=== PATIENT | male | born 1980 | race Caucasian/White ===

== ENCOUNTER 2018-03-30 13:33 | Emergency (ER) | payer MEDICAID ==
[~2018-03-30] VITALS: Ht 660.3 cm; Wt 83.3 kg
[~2018-03-30 13:33] MED LIST: BACDS PO; CLIN150C2 PO; NO HOME MEDS
[2018-03-30] MEDS ORDERED: azithromycin 250mg tablet PO ONE (14:30)
[2018-03-30] MEDS ORDERED: CefTRIAXone 250MG IM Kit w/LIDOcaine IM ONE (14:30)
[2018-03-30 14:58] VITALS: BP 129/72
== END 2018-03-30 15:00 | disposition home or self-care (01) ==
LOC: ER 13:33
DX: A64 Unspecified sexually transmitted disease (principal); F12.90 Cannabis use, unspecified, uncomplicated; F15.90 Other stimulant use, unspecified, uncomplicated; Z56.0 Unemployment, unspecified; Z79.2 Long term (current) use of antibiotics
CPT/HCPCS: 36415; 87491; 87591; 96372; 99284; J0696

== ENCOUNTER 2018-07-25 10:05 | Emergency (ER) | payer MEDICAID ==
[~2018-07-25] VITALS: Ht 188 cm; Wt 75.0 kg
[2018-07-25 10:10] VITALS: BP 129/82
[2018-07-25] MEDS ORDERED: CefTRIAXone 250MG IM Kit w/LIDOcaine IM ONE (11:10)
[2018-07-25] MEDS ORDERED: azithromycin 250mg tablet PO ONE (11:10)
== END 2018-07-25 11:33 | disposition home or self-care (01) ==
LOC: ER 10:06
DX: A63.8 Other specified predominantly sexually transmitted diseases (principal); B95.7 Other staphylococcus as the cause of diseases classified elsewhere; F19.10 Other psychoactive substance abuse, uncomplicated; M79.89 Other specified soft tissue disorders; F12.90 Cannabis use, unspecified, uncomplicated; F15.90 Other stimulant use, unspecified, uncomplicated; Z56.0 Unemployment, unspecified
CPT/HCPCS: 96372; 99283; J0696

== ENCOUNTER 2020-04-06 11:47 | Emergency (ER) | payer MEDICAID ==
[~2020-04-06] VITALS: Ht 188 cm; Wt 84.1 kg
[2020-04-06 11:54] VITALS: BP 124/80
[2020-04-06] MEDS ORDERED: proparacaine 0.5% ophthalmic drops 15ml LEFTEYE ONE (13:05)
[2020-04-06] MEDS ORDERED: ciprofloxacin 0.3% 2.5ml ophthalmic solution LEFTEYE ONE (13:40)
[2020-04-06] MEDS ORDERED: CIPR2.5D18 RIGHTEYE (14:07)
== END 2020-04-06 14:27 | disposition home or self-care (01) ==
LOC: ER 11:47
DX: H10.9 Unspecified conjunctivitis (principal); F12.90 Cannabis use, unspecified, uncomplicated; F15.90 Other stimulant use, unspecified, uncomplicated; Z56.0 Unemployment, unspecified; Z79.2 Long term (current) use of antibiotics
CPT/HCPCS: 99283

== ENCOUNTER 2020-07-05 05:02 | Emergency (ER) | payer MEDICAID ==
[~2020-07-05] VITALS: Ht 188 cm; Wt 81.8 kg
[2020-07-05] MEDS ORDERED: azithromycin 250mg tablet PO ONE (05:15)
[2020-07-05] MEDS ORDERED: CefTRIAXone 250MG IM Kit w/LIDOcaine IM ONE (05:15)
[2020-07-05 05:44] VITALS: BP 133/94
== END 2020-07-05 05:45 | disposition home or self-care (01) ==
LOC: ER 05:03
DX: Z20.2 Contact with and (suspected) exposure to infections with a predominantly sexual mode of transmission (principal); R10.11 Right upper quadrant pain; F12.90 Cannabis use, unspecified, uncomplicated; F15.90 Other stimulant use, unspecified, uncomplicated; Z56.0 Unemployment, unspecified; Z79.2 Long term (current) use of antibiotics; Z98.890 Other specified postprocedural states
CPT/HCPCS: 96372; 99283; J0696

== ENCOUNTER 2020-10-27 08:19 | Emergency (ER) | payer MEDICAID ==
[~2020-10-27] VITALS: Ht 188 cm; Wt 81.8 kg
[2020-10-27 08:24] VITALS: BP 136/89
[2020-10-27] MEDS ORDERED: CefTRIAXone 250MG IM Kit w/LIDOcaine IM ONE (09:25)
== END 2020-10-27 10:09 | disposition home or self-care (01) ==
LOC: ER 08:20
DX: R36.9 Urethral discharge, unspecified (principal); F12.90 Cannabis use, unspecified, uncomplicated; F15.90 Other stimulant use, unspecified, uncomplicated; Z56.0 Unemployment, unspecified; Z79.2 Long term (current) use of antibiotics; Z79.899 Other long term (current) drug therapy
CPT/HCPCS: 36415; 87491; 87591; 96372; 99283; J0696

== ENCOUNTER 2020-11-17 03:36 | Emergency (ER) | payer MEDICAID ==
[~2020-11-17] VITALS: Ht 188 cm; Wt 81.8 kg
[2020-11-17 03:39] VITALS: BP 126/97
[2020-11-17] MEDS ORDERED: CefTRIAXone 1000mg IM Kit (w/lidocaine diluent) IM STA (03:47)
[2020-11-17] MEDS ORDERED: DOXY100C43 PO (03:49)
[2020-11-17] MEDS ORDERED: DOXYCYCLINE 100MG CAPSULE PO ONE (03:50)
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
== END 2020-11-17 04:52 | disposition home or self-care (01) ==
LOC: ER 03:36
DX: A56.01 Chlamydial cystitis and urethritis (principal); Z11.3 Encounter for screening for infections with a predominantly sexual mode of transmission; F12.90 Cannabis use, unspecified, uncomplicated; F15.90 Other stimulant use, unspecified, uncomplicated; Z79.2 Long term (current) use of antibiotics; Z79.899 Other long term (current) drug therapy; Z56.0 Unemployment, unspecified
CPT/HCPCS: 96372; 99283; J0696

== ENCOUNTER 2021-06-17 06:30 | Emergency (ER) | payer MEDICAID ==
[~2021-06-17] VITALS: Ht 188 cm; Wt 81.8 kg
[2021-06-17] MEDS ORDERED: CefTRIAXone 250MG inj IM ONE (07:20)
[2021-06-17] MEDS ORDERED: DOXY-1 PO (07:23)
[2021-06-17 07:46] VITALS: BP 126/82
[2021-06-17] MEDS ORDERED: CefTRIAXone 500MG IM Kit w/LIDOcaine IM ONE (08:45)
== END 2021-06-17 07:53 | disposition home or self-care (01) ==
LOC: ER 06:31
DX: N34.2 Other urethritis (principal); A54.9 Gonococcal infection, unspecified; F12.90 Cannabis use, unspecified, uncomplicated; F15.90 Other stimulant use, unspecified, uncomplicated; Z56.0 Unemployment, unspecified; Z88.1 Allergy status to other antibiotic agents
CPT/HCPCS: 96372; 99283; J0696

== ENCOUNTER 2022-11-29 22:32 | Emergency (ER) | payer MEDICAID ==
[~2022-11-29] VITALS: Ht 188 cm; Wt 90.0 kg
[2022-11-30 00:19] LABS: CLARITY,URINE SLIGHTLY CLOUDY (Clear); COLOR,URINE YELLOW (Yellow); GLUCOSE, URINE NEGATIVE (Neg); KETONES,URINE NEGATIVE (Neg); LEUKOCYTE ESTERASE ,URINE NEGATIVE (Neg); NITRITES, URINE NEGATIVE (Neg); OCCULT BLOOD,URINE NEGATIVE (Neg); PROTEIN,URINE NEGATIVE (Neg); UROBILINOGEN,URINE 0.2 E.U/dL (0.2-1.0)
[2022-11-30 00:24] LABS: UA COLLECTION TYPE CLN CATCH MIDSTREAM
[2022-11-30 00:25] LABS: HYALINE CASTS 0-3 /LPF (NEGATIVE); MUCUS STRANDS MANY /LPF (Neg); SPERM MODERATE /HPF (NEGATIVE); SQUAMOUS EPITHELIAL CELL,UR FEW /LPF (FEW)
[2022-11-30 00:26] LABS: BACTERIA,URINE NONE SEEN /HPF (Neg); RBC,URINE 0-2 /HPF (0-2); WBC,URINE 0-4 /HPF (0-4)
[2022-11-30] MEDS ORDERED: DOXYCYCLINE 100MG CAPSULE PO STA (00:32)
[2022-11-30] MEDS ORDERED: metroNIDAZOLE 500mg tablet PO ONE (00:35)
[2022-11-30] MEDS ORDERED: CefTRIAXone 500MG IM Kit w/LIDOcaine IM ONE (00:35)
[2022-11-30] MEDS ORDERED: METR-159 PO (00:48)
[2022-11-30] MEDS ORDERED: DOXY100T2 PO (00:48)
[2022-11-30] MEDS ORDERED: CefTRIAXone 1000mg IM Kit (w/lidocaine diluent) IM ONE (00:50)
[2022-11-30 01:20] VITALS: BP 120/74
== END 2022-11-30 01:22 | disposition home or self-care (01) ==
LOC: ER 22:32
DX: Z11.3 Encounter for screening for infections with a predominantly sexual mode of transmission (principal); F12.90 Cannabis use, unspecified, uncomplicated; F15.20 Other stimulant dependence, uncomplicated; Z56.0 Unemployment, unspecified
CPT/HCPCS: 81001; 96372; 99283; J0696

== ENCOUNTER 2025-02-12 20:57 | Emergency (ER) | payer MEDICAID ==
[~2025-02-12] VITALS: Ht 188 cm; Wt 71.2 kg
[~2025-02-12 20:57] MED LIST changes: +DOXY100T2 PO
[2025-02-12 21:12] VITALS: TEMP 97.8
--- NOTE | 2025-02-12 21:51 | RADIOLOGY REPORT ---
EXAM: DI SHOULDER, COMPLETE (MIN 2 VWS) CLINICAL HISTORY: Shoulder Pain RIGHT COMPARISON: None TECHNIQUE: DI SHOULDER, COMPLETE (MIN 2 VWS) Findings/Impression: 3 views of the right shoulder. Markedly displaced comminuted fracture of the right midclavicle with inferior displacement of the dis mattie fracture fragments. There is no evidence of dislocation, blastic, or lytic lesions. No radiopaque foreign bodies. Right mid lung field calcified granuloma. No joint effusion or superficial soft tissue abnormalities.
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
[2025-02-12] MEDS ORDERED: HYDR-3973 PO (23:40)
[2025-02-13] MEDS: HYDROcodone/acetaminophen 10/325mg tab PO STA (00:43)
[2025-02-13 00:50] VITALS: BP 156/85; PULSE 68; RESP 16; O2SAT 99
== END 2025-02-13 00:52 | disposition home or self-care (01) ==
LOC: ER 20:58
DX: S42.021A Displaced fracture of shaft of right clavicle, initial encounter for closed fracture (principal); V89.9XXA Person injured in unspecified vehicle accident, initial encounter; Y93.89 Activity, other specified; Y92.89 Other specified places as the place of occurrence of the external cause; Y99.8 Other external cause status
CPT/HCPCS: 73030; 99283; A4565